=== PATIENT | female | born 1970 | race Caucasian/White ===

== ENCOUNTER 2020-06-18 07:05 | Day surgery (SDC) | payer BC ==
[~2020-06-18 07:05] MED LIST: Lactated Ringers 1,000 ML IV SCH; Sodium Chloride 0.9% 10 ML SDV IV PRN; Sodium Chloride 0.9% 10 ML Syringe FLUSH PRN; Sodium Chloride 0.9% 2.5 ML Syringe FLUSH PRN
[2020-06-18] MEDS ORDERED: Propofol 200 MG/20 ML SDV ONE (07:17)
[2020-06-18] MEDS ORDERED: Lidocaine 2% 5 ML SDV ONE (07:17)
[2020-06-18] MEDS ORDERED: Midazolam 1 MG/ML 2 ML SDV ONE (07:17)
[2020-06-18] MEDS ORDERED: fentaNYL 100 MCG/2 ML SDV ONE (07:17)
--- NOTE | 2020-06-18 07:39 | PCM.PREANE ---
Preanesthetic Assessment - Anesthesia/Transfusion/Family Hx Anesthesia History: Prior Anesthesia Without Reaction Family History of Anesthesia Reaction: No Transfusion History: No Prior Transfusion(s) - Review of Systems General: No Symptoms Pulmonary: No Symptoms Cardiovascular: No Symptoms Gastrointestinal: No Symptoms Neurological: No Symptoms Other: Reports: None - Physical Assessment NPO Status Date: 06/17/20 Vital Signs: Last Vital Signs Temp 98.6 F 06/18/20 07:10 Pulse 118 H 06/18/20 07:10 Resp 16 06/18/20 07:10 BP 134/86 06/18/20 07:10 Pulse Ox 99 06/18/20 07:10 Height: 5 ft 7 in Weight: 86.183 kg ASA Class: 2 Mental Status: Alert & Oriented x3 Airway Class: Mallampati = 2 Dentition: Reports: Normal Dentition ROM/Head Extension: Full Lungs: Clear to Auscultation, Normal Respiratory Effort Cardiovascular: Regular Rate, Regular Rhythm - Lab Values: Laboratory Last Values Urine HCG, Qual NEGATIVE (NEGATIVE) 06/18/20 07:10 - Allergies Allergies/Adverse Reactions: Allergies Allergy/AdvReac Type Severity Reaction Status Date / Time No Known Allergies Allergy Verified 06/12/20 10:46 - Blood Blood Available: No - Anesthesia Plan Pre-Op Medication Ordered: None - Acknowledgements Anesthesia Type Planned: General Anesthesia (tiva) Pt an Appropriate Candidate for the Planned Anesthesia: Yes Alternatives and Risks of Anesthesia Discussed w Pt/Guardian: Yes Pt/Guardian Understands and Agrees with Anesthesia Plan: Yes Additional Comments: anes prob list: MS (stable) PLAN: tiva PreAnesthesia Questionnaire HEENT History: Reports: None Cardiovascular History: Reports: None Respiratory History: Reports: None Gastrointestinal History: Reports: GERD Genitourinary History: Reports: None Musculoskeletal History: Reports: None Neurological History: Reports: MS Psychiatric History: Reports: Anxiety, Depression Endocrine/Metabolic History: Reports: None Hematologic History: Reports: None Immunologic History: Reports: None Oncologic (Cancer) History: Reports: None Dermatologic History: Reports: None - Infectious Disease History Infectious Disease History: Reports: None - Past Surgical History Head Surgeries/Procedures: Reports: None HEENT Surgical History: Reports: None Cardiovascular Surgical History: Reports: None Respiratory Surgical History: Reports: None GI Surgical History: Reports: Cholecystectomy Female Surgical History: Reports: None Endocrine Surgical History: Reports: None Neurological Surgical History: Reports: None Musculoskeletal Surgical History: Reports: Arthroscopic Knee Other Musculoskeletal Surgeries/Procedures:: right meniscus repair Oncologic Surgical History: Reports: None Dermatological Surgical History: Reports: None - SUBSTANCE USE Tobacco Use Status *Q: Never Tobacco User - HOME MEDS Home Medications: Home Meds Cholecalciferol (Vitamin D3) [Vitamin D3] 125 mcg PO DAILY 06/12/20 [History] Cyanocobalamin (Vitamin B-12) [Vitamin B12] 5,000 mcg PO DAILY 06/12/20 [History] Desogestrel/Ethinyl Estradiol [Apri] 1 tab PO DAILY 06/12/20 [History] Glucosamine Sulfate 2KCl [Glucosamine Sulfate] 1 tab PO DAILY 06/12/20 [History] Multivit with Calcium,Iron,Min [One Daily Women's] 1 tab PO DAILY 06/12/20 [History] Naproxen Sodium [Aleve] 1 tab PO ASDIRECTED PRN 06/12/20 [History] Sertraline HCl 100 mg PO DAILY 06/12/20 [History] Triamcinolone Acetonide [Triamcinolone Acetonide 0.1% Crm] 1 applic TOP ASDIRECTED PRN 06/12/20 [History] hydrOXYzine HCL [hydrOXYzine] 50 mg PO ASDIRECTED PRN 06/13/20 [History] - CURRENT (IN HOUSE) MEDS Current Meds: Current Medications Lactated Ringer's (Ringers, Lactated) 1,000 mls @ 125 mls/hr IV ASDIRECTED ERIC Last Admin: 06/18/20 07:30 Dose: 125 mls/hr Documented by: Sodium Chloride (Saline Flush) 10 ml FLUSH ASDIRECTED PRN PRN Reason: Keep Vein Open Sodium Chloride (Saline Flush) 2.5 ml FLUSH ASDIRECTED PRN PRN Reason: Keep Vein Open Sodium Chloride (Saline Flush) 10 ml FLUSH ASDIRECTED PRN PRN Reason: Keep Vein Open Sodium Chloride (Saline Flush) 2.5 ml FLUSH ASDIRECTED PRN PRN Reason: Keep Vein Open Sodium Chloride (Normal Saline) 10 ml IV ASDIRECTED PRN PRN Reason: IV Use Discontinued Medications Fentanyl (Sublimaze) Confirm Administered Dose 100 mcg .ROUTE .STK-MED ONE Stop: 06/18/20 07:18 Lidocaine (Xylocaine-Mpf 2%) Confirm Administered Dose 5 ml .ROUTE .STK-MED ONE Stop: 06/18/20 07:18 Midazolam HCl (Versed 1 Mg/Ml) Confirm Administered Dose 2 mg .ROUTE .STK-MED ONE Stop: 06/18/20 07:18 Propofol (Diprivan 20 Ml) Confirm Administered Dose 400 mg .ROUTE .STK-MED ONE Stop: 06/18/20 07:18
[2020-06-18] MEDS ORDERED: Glycopyrrolate 0.2 MG/ML SDV ONE (08:41)
--- NOTE | 2020-06-18 09:03 | PCM.OPNOTE ---
- General Post-Op/Procedure Note Date of Surgery/Procedure: 06/18/20 Operative Procedure(s): Screening colonoscopy Findings: Normal colonoscopy Pre Op Diagnosis: Screening colonoscopy Post-Op Diagnosis: same Anesthesia Technique: MAC Primary Surgeon: Jana Singletary Condition: Good
--- NOTE | 2020-06-18 09:37 | PCM.POSTAN ---
POST ANESTHESIA ASSESSMENT - MENTAL STATUS Mental Status: Alert, Oriented - VITAL SIGNS Vital Signs: Last Vital Signs Temp 98.6 F 06/18/20 07:10 Pulse 102 H 06/18/20 09:08 Resp 14 06/18/20 09:08 BP 142/68 H 06/18/20 09:08 Pulse Ox 100 06/18/20 09:08 - RESPIRATORY Respiratory Status: Respiratory Rate WNL, Airway Patent, O2 Saturation Stable - CARDIOVASCULAR CV Status: Pulse Rate WNL, Blood Pressure Stable - GASTROINTESTINAL GI Status: No Symptoms - POST OP HYDRATION Hydration Status: Adequate & Stable
--- NOTE | 2020-06-18 09:37 | PCM48HPAN ---
Post Anesthesia Note - EVALUATION WITHIN 48HRS OF ANESTHETIC Vital Signs in Normal Range: Yes Patient Participated in Evaluation: Yes Respiratory Function Stable: Yes Airway Patent: Yes Cardiovascular Function Stable: Yes Hydration Status Stable: Yes Pain Control Satisfactory: Yes Nausea and Vomiting Control Satisfactory: Yes Mental Status Recovered: Yes Vital Signs: Last Vital Signs Temp 98.6 F 06/18/20 07:10 Pulse 102 H 06/18/20 09:08 Resp 14 06/18/20 09:08 BP 142/68 H 06/18/20 09:08 Pulse Ox 100 06/18/20 09:08
--- NOTE | 2020-06-18 13:22 | OR ---
SURGEON: JANA SINGLETARY MD DATE OF PROCEDURE: 06/18/2020 PREOPERATIVE DIAGNOSIS: Screening colonoscopy. POSTOPERATIVE DIAGNOSIS: Screening colonoscopy. PROCEDURE PERFORMED: Screening colonoscopy. PRIMARY SURGEON: Jana Singletary MD ANESTHESIA: MAC. INSTRUMENT USED: Olympus colonoscope. EXTENT OF EXAM: To the cecum. PREPARATION: Good. LIMITATIONS: None. INDICATIONS FOR EXAMINATION: The patient is a 50-year-old female who presents for a first-time screening colonoscopy. I explained the procedure, expected perioperative course, and risks. The patient verbalized understanding and wishes to proceed. PROCEDURE IN DETAIL: The patient was brought into the endoscopy suite and placed in a left lateral decubitus position. A time-out was completed verifying the patient's name, age, date of , allergies, and procedure to be performed. Monitored anesthesia care was induced and continuous oxygen was provided via nasal cannula throughout the procedure. After adequate sedation was achieved, a digital rectal exam was performed. This exam was within normal limits. A well-lubricated colonoscope was inserted in the rectum and advanced under direct visualization to the level of the cecum. The cecum was identified by both visual and anatomic landmarks. A photograph was taken of the cecal cap; however, I was unable to retroflex the scope within the cecum due to looping of the scope more proximally. The scope was then fully withdrawn while examining the color, texture, anatomy, and integrity of the mucosa from the cecum to the anal canal. The findings were consistent with normal colonic mucosa. The scope was brought into the rectum and retroflexed to allow visualization of the anal canal opening. This appeared normal and a photograph was taken. The scope was then straightened out and fully withdrawn. The cecum to anus time was 6 minutes. The patient tolerated the procedure well and was transferred to the PACU in stable condition. ENDOSCOPIC DIAGNOSIS: Normal colonoscopy. RECOMMENDATIONS: Follow up in clinic in 10 years. KAREN / GABRIEL /[id number]
== END 2020-06-18 09:40 | disposition home or self-care (01) ==
LOC: MW.SDS 07:05
PROVIDERS: ATTEND Surgery
DX: Z12.11 Encounter for screening for malignant neoplasm of colon (principal); K21.9 Gastro-esophageal reflux disease without esophagitis; F41.9 Anxiety disorder, unspecified; Z79.899 Other long term (current) drug therapy; Z98.890 Other specified postprocedural states
CPT/HCPCS: 45378; 81025; J2001; J2250; J2704; J3010; J3490; J7120; 00812

== ENCOUNTER 2021-11-22 17:27 | Observation (INO) | payer BC ==
[2021-11-22] MEDS ORDERED: Sodium Chloride 0.9% 10 ML Syringe FLUSH PRN (17:33)
[2021-11-22] MEDS ORDERED: Sodium Chloride 0.9% 2.5 ML Syringe FLUSH PRN (17:33)
[2021-11-22] MEDS ORDERED: Sodium Chloride 0.9% 1,000 ML IV ONE (18:17)
[2021-11-22] MEDS ORDERED: Ketorolac 30 MG/ML SDV IVPUSH ONE (18:18)
[2021-11-22 18:33] LABS: BLOOD UREA NITROGEN,BUN 14 mg/dL (7.0-18.0); CARBON DIOXIDE,CO2 28.8 mmol/L (21.0-32.0); CHLORIDE,CL 105 mmol/L (98-107); GLUCOSE RANDOM 109 mg/dL (74-106); LIPASE 94 U/L (73-393); POTASSIUM,K 4.2 mmol/L (3.5-5.1); SODIUM,NA 141 mmol/L (136-145)
[2021-11-22] MEDS ORDERED: Iopamidol 755 MG/ML 500 ML Multipack Bottle IVPUSH ONE (19:10)
[2021-11-22] MEDS ORDERED: Morphine 4 MG/ML VIAL IVPUSH ONE (20:10)
[2021-11-22] MEDS ORDERED: Ondansetron 4 MG/2 ML SDV IVPUSH ONE (20:10)
[2021-11-22] MEDS ORDERED: Piperacillin/Tazobactam 3.375 GM in Sodium Chloride 0.9% 50 ML IV ONE (20:11)
[2021-11-22] MEDS ORDERED: Lactated Ringers 1,000 ML IV SCH ×2 (21:00→23:45)
[2021-11-22] MEDS ORDERED: Bupivacaine 0.5% 10 ML SDV ONE (21:29)
[2021-11-22] MEDS ORDERED: ceFAZolin 1 GM Vial ONE (21:29)
[2021-11-22] MEDS ORDERED: Octyl 2-Cyanoacrylate 1 Tube ONE (21:29)
[2021-11-22] MEDS ORDERED: fentaNYL 250 MCG/5 ML SDV ONE ×2 (21:32→22:37)
[2021-11-22] MEDS ORDERED: Propofol 200 MG/20 ML SDV ONE ×2 (21:32→22:14)
[2021-11-22] MEDS ORDERED: Sugammadex Sodium 200 MG/2 ML VIAL ONE (22:49)
[2021-11-22] MEDS ORDERED: Rocuronium Bromide 50 MG/5 ML Syringe ONE (22:49)
[2021-11-22] MEDS ORDERED: ePHEDrine 50 MG/ML SDV ONE (22:49)
[2021-11-22] MEDS ORDERED: Glycopyrrolate 0.2 MG/ML SDV ONE (22:49)
[2021-11-22] MEDS ORDERED: Ondansetron 4 MG/2 ML SDV ONE (22:49)
[2021-11-22] MEDS ORDERED: Piperacillin/Tazobactam 3.375 GM in Sodium Chloride 0.9% 50 ML IV SCH (23:45)
[2021-11-22] MEDS ORDERED: Morphine 2 MG/ML SYRINGE IVPUSH PRN (23:59)
[2021-11-23] MEDS: Piperacillin/Tazobactam 3.375 GM in Sodium Chloride 0.9% 50 ML IV SCH ×3 (03:50→20:29)
[2021-11-23] MEDS: Acetaminophen/HYDROcodone 325-5 MG Tab PO PRN ×4 (04:01→16:43)
[2021-11-23] MEDS ORDERED: Lactated Ringers 1,000 ML IV SCH (13:30)
[2021-11-24] MEDS: Piperacillin/Tazobactam 3.375 GM in Sodium Chloride 0.9% 50 ML IV SCH (03:13)
== END 2021-11-24 10:20 | disposition home or self-care (01) ==
LOC: MW.ED 17:27 → MW.SDS 20:47 → MW.MS 20:47 → MW.SDS 21:12 → MW.MS 21:12
PROVIDERS: ADMIT Surgery; ATTEND Surgery
DX: K35.33 Acute appendicitis with perforation, localized peritonitis, and gangrene, with abscess (principal); N39.0 Urinary tract infection, site not specified; F41.9 Anxiety disorder, unspecified; G35 Multiple sclerosis; Z20.822 Contact with and (suspected) exposure to COVID-19; Z90.49 Acquired absence of other specified parts of digestive tract; Z79.899 Other long term (current) drug therapy
CPT/HCPCS: 36415; 44970; 74177; 80053; 81001; 83690; 84703; 85025; 87086; 87635; 96365; 96366; 96375; 96376; 99285; A9270; G0378; J0131; J2270; J2405; J2543; J2704; J3010; J3490; J7030; J7120; Q9967; 00840; 87088; 87186; 99284; J0690; U0002